=== PATIENT | female | born 1950 | race Caucasian/White ===

== ENCOUNTER → 2017-02-26 | Emergency (ER) | payer MEDICARE, MEDICAID ==
[~2017-02-26] VITALS: Ht 152.4 cm; Wt 114.0 kg
[~2017-02-26] MED LIST: PERM60CR19 TP; TOBR5DRO2 EACHEYE
[2017-02-26 14:33] VITALS: BP 134/70
== END | disposition home or self-care (01) ==
LOC: ER 13:21
DX: H01.005 Unspecified blepharitis left lower eyelid (principal); H01.002 Unspecified blepharitis right lower eyelid; B86 Scabies
CPT/HCPCS: 99283

== ENCOUNTER 2019-04-23 08:49 | Day surgery (SDC) | payer MEDICARE, MEDICAID ==
[~2019-04-23] VITALS: Ht 154.9 cm; Wt 100.0 kg
[~2019-04-23 08:49] MED LIST changes: +ASPI81TA52 PO; +BACL10TA2 PO; +BECL8.7A7 INH; +BUSP5TAB3 PO; +DILT120C51 PO; +FURO20TA4 PO; +IPRA3AMP31; +IPRA4AER; +LEVO100T9 PO; +LORA10TA7 PO; +MELO-102 PO; +OMEP-50 PO; -PERM60CR19 TP; +PERM60CR4 TOP; +POTA8CAP20 PO; +PREG50CA PO; +SUCR1TAB PO
[2019-04-23 09:04] VITALS: BP 129/70
[2019-04-23] MEDS ORDERED: LIDOcaine Viscous 15ml cup ONE (09:09)
[2019-04-23] MEDS ORDERED: MIDAZolam 5mg/5ml vial ONE (09:09)
[2019-04-23] MEDS ORDERED: fentaNYL/PF 50MCG/1 ML 2ML syringe ONE (09:09)
[2019-04-23] MEDS ORDERED: ESCI20TA PO (09:45)
[2019-04-23] MEDS ORDERED: MELO15TA13 PO (09:46)
[2019-04-23] MEDS ORDERED: OMEP20TA23 PO (09:51)
[2019-04-23] MEDS ORDERED: FURO40TA4 PO (09:52)
[2019-04-23] MEDS ORDERED: CLOP75TA15 PO (09:53)
[2019-04-23] MEDS ORDERED: PREG50CA PO (09:54)
[2019-04-23] MEDS ORDERED: DILT120C52 PO (09:55)
[2019-04-23] MEDS ORDERED: LEVO25TA49 PO (09:56)
[2019-04-23] MEDS ORDERED: PIMO1TAB2 (09:56)
[2019-04-23] MEDS ORDERED: ATOR10TA PO (09:56)
[2019-04-23] MEDS ORDERED: BUSP10TA3 PO (09:57)
[2019-04-23] MEDS ORDERED: POTA10CA44 PO (09:57)
[2019-04-23 11:18] VITALS: BP 106/63
[2019-04-23 11:28] VITALS: BP 105/51
[2019-04-23 11:38] VITALS: BP 107/63
[2019-04-23 11:48] VITALS: BP 120/58
== END 2019-04-23 12:00 | disposition home or self-care (01) ==
LOC: GI LAB 08:49
PROVIDERS: ATTEND Internal Medicine Gastroenterology
DX: D50.9 Iron deficiency anemia, unspecified (principal); K63.89 Other specified diseases of intestine; K44.9 Diaphragmatic hernia without obstruction or gangrene; K31.4 Gastric diverticulum; Z98.84 Bariatric surgery status; Z87.19 Personal history of other diseases of the digestive system
CPT/HCPCS: 43239; 45378; 99153; G0500; J2250; J3010; J7040; 99152; A4620

== ENCOUNTER 2019-09-25 17:04 | Emergency (ER) | payer MEDICARE, MEDICAID ==
[~2019-09-25] VITALS: Ht 152.4 cm; Wt 109.1 kg
[~2019-09-25 17:04] MED LIST changes: -ASPI81TA52 PO; +ATOR10TA PO; -BACL10TA2 PO; -BECL8.7A7 INH; +BUSP10TA3 PO; -BUSP5TAB3 PO; +CLOP75TA15 PO; -DILT120C51 PO; +DILT120C52 PO; +ESCI20TA PO; -FURO20TA4 PO; +FURO40TA4 PO; -IPRA3AMP31; -IPRA4AER; -LEVO100T9 PO; +LEVO25TA49 PO; -LORA10TA7 PO; -MELO-102 PO; +MELO15TA13 PO; -OMEP-50 PO; +OMEP20TA23 PO; -PERM60CR4 TOP; +PIMO1TAB2; +POTA10CA44 PO; -POTA8CAP20 PO; -SUCR1TAB PO; -TOBR5DRO2 EACHEYE
--- NOTE | 2019-09-25 17:16 | NUR ---
patient to ct.
--- NOTE | 2019-09-25 17:24 | NUR ---
patient in room 4.
--- NOTE | 2019-09-25 17:34 | NUR ---
Awaiting for Tele Neuro consult.Monitor in the room.
--- NOTE | 2019-09-25 17:34 | NUR ---
Stroke RN Shakria at bedside.
--- NOTE | 2019-09-25 17:38 | NUR ---
symptoms resolving,denies numbness to left arm and leg,only c/o left facial numbness at this time.No noted slurred speech.Able to get up at the side of the bed and took 2 steps with Primary RN and Stroke RN standing by.
[2019-09-25 17:43] LABS: BASOPHILS # (AUTO) 0.1 X10'3 (0-0.2); EOSINOPHILS # (AUTO) 0.3 X10'3 (0-0.9); EOSINOPHILS % (AUTO) 6.2 % (0-6); HEMATOCRIT 40.4 % (35.0-45.0); HEMOGLOBIN 13.4 g/dl (12.0-16.0); LYMPHOCYTES # (AUTO) 1.3 X10'3 (1.1-4.8); LYMPHOCYTES % (AUTO) 25.7 % (21-51); MEAN CORPUSCULAR HEMOGLOBIN 29.6 PG (27.0-31.0); MEAN CORPUSCULAR HGB CONC 33.1 g/dL (33.0-36.5); MEAN CORPUSCULAR VOLUME 89.4 FL (78-98); MEAN PLATELET VOLUME 7.7 FL (7.4-10.4); MONOCYTES # (AUTO) 0.4 X10'3 (0-0.9); MONOCYTES % (AUTO) 7.3 % (2-12); NEUTROPHILS # (AUTO) 3.1 X10'3 (1.8-7.7); NEUTROPHILS % (AUTO) 59.8 % (42-75); PLATELET COUNT 226 X10'3 (140-440); RED BLOOD COUNT 4.52 X10'6 (4.20-5.60); RED CELL DISTRIBUTION WIDTH 15.9 % (11.5-14.5); WHITE BLOOD COUNT 5.1 X10'3 (4.5-11.0)
[2019-09-25 17:54] LABS: PARTIAL THROMBOPLASTIN TIME 26 SECONDS (22-32)
[2019-09-25 17:56] LABS: ALANINE AMINOTRANSFERASE 39 U/L (12-78); ALBUMIN 3.5 G/DL (3.4-5.0); ALBUMIN/GLOBULIN RATIO 0.8 (1.1-1.5); ALKALINE PHOSPHATASE 153 IU/L (46-116); ANION GAP 7 (8-16); ASPARTATE AMINO TRANSFERASE 32 U/L (10-37); BILIRUBIN,TOTAL 0.5 MG/DL (0.1-1.0); BLOOD UREA NITROGEN 27 MG/DL (7-18); BUN/CREATININE RATIO 31.8 (6.6-38.0); CALCIUM 8.9 MG/DL (8.5-10.1); CHLORIDE 104 MMOL/L (99-107); CREATININE 0.85 MG/DL (0.40-0.90); GLUCOSE 113 MG/DL (70-104); POTASSIUM 4.5 MMOL/L (3.5-5.1); SODIUM 139 MMOL/L (135-145); TOTAL CARBON DIOXIDE 28.5 MMOL/L (24-32); TOTAL PROTEIN 7.8 G/DL (6.4-8.2); eGFR 66 ML/MIN
[2019-09-25 17:59] LABS: TROPONIN I < 0.04 NG/ML (0.0-0.05)
[2019-09-25] MEDS ORDERED: diphenhydrAMINE 50 mg/ml inj IV ONE (18:05)
[2019-09-25] MEDS ORDERED: ketorolac tromethamine 15mg/ml inj. IV ONE ×2 (18:05→18:35)
[2019-09-25] MEDS ORDERED: normal saline 1000ML IV soln IVB ONE (18:05)
[2019-09-25] MEDS ORDERED: iohexol 350MG/ML 100ml bottle IV ONE (18:08)
--- NOTE | 2019-09-25 18:30 | NUR ---
TORADOL DROPPED BEFORE ADMINISTER, PHARMACY NOTIFIED TO REORDER.
[2019-09-25] MEDS ORDERED: LEVO100T PO (18:34)
[2019-09-25] MEDS ORDERED: DILT120C51 PO (18:34)
[2019-09-25] MEDS ORDERED: ATOR20TA66 PO (18:34)
[2019-09-25] MEDS ORDERED: BUSP5TAB3 PO (18:34)
[2019-09-25] MEDS ORDERED: OMEP40CA13 PO (18:34)
[2019-09-25] MEDS ORDERED: POTA8CAP20 PO (18:34)
[2019-09-25] MEDS ORDERED: FURO-150 PO (18:34)
[2019-09-25] MEDS ORDERED: PREG50CA64 PO (18:38)
[2019-09-25] MEDS ORDERED: FERR325T29 PO (18:39)
[2019-09-25 20:05] VITALS: BP 124/67
== END 2019-09-25 20:06 | disposition home or self-care (01) ==
LOC: ER 17:05
DX: R20.0 Anesthesia of skin (principal); R51 Headache; E78.00 Pure hypercholesterolemia, unspecified; Z88.0 Allergy status to penicillin; Z88.2 Allergy status to sulfonamides; Z88.5 Allergy status to narcotic agent; Z79.2 Long term (current) use of antibiotics; Z79.899 Other long term (current) drug therapy
CPT/HCPCS: 36415; 70450; 70496; 70498; 71045; 80053; 82948; 84484; 85025; 85610; 85730; 93005; 96374; 96375; 99285; J1200; J1885; J7030; Q9967

== ENCOUNTER 2019-10-15 16:12 | Emergency (ER) | payer MEDICARE, MEDICAID ==
[~2019-10-15] VITALS: Ht 157.5 cm; Wt 108.9 kg
[~2019-10-15 16:12] MED LIST changes: -ATOR10TA PO; +ATOR20TA66 PO; -BUSP10TA3 PO; +BUSP5TAB3 PO; +DILT120C51 PO; -DILT120C52 PO; -ESCI20TA PO; +FERR325T29 PO; +FURO-150 PO; -FURO40TA4 PO; +LEVO100T PO; -LEVO25TA49 PO; -OMEP20TA23 PO; +OMEP40CA13 PO; -PIMO1TAB2; -POTA10CA44 PO; +POTA8CAP20 PO; -PREG50CA PO; +PREG50CA64 PO
--- NOTE | 2019-10-15 17:38 | NUR ---
CT CLEARED, TAKEN OFF TRAUMA STATUS PER PROVIDER
[2019-10-15] MEDS ORDERED: acetaminophen 325mg tablet PO ONE (18:05)
--- NOTE | 2019-10-15 18:07 | NUR ---
BACK FROM CT
--- NOTE | 2019-10-15 18:08 | NUR ---
PATIENT REFUSED TYLENOL
--- NOTE | 2019-10-15 18:52 | NUR ---
Cell phone # adelia Oakes Addendum: 10/15/19 at 2002 by JEEVAN Correct cell # [phone]
[2019-10-15 20:41] VITALS: BP 127/58
== END 2019-10-15 20:43 | disposition home or self-care (01) ==
LOC: ER 16:12
DX: S00.83XA Contusion of other part of head, initial encounter (principal); M25.551 Pain in right hip; R19.00 Intra-abdominal and pelvic swelling, mass and lump, unspecified site; I48.91 Unspecified atrial fibrillation; E78.00 Pure hypercholesterolemia, unspecified; Z88.0 Allergy status to penicillin; Z88.2 Allergy status to sulfonamides; Z88.5 Allergy status to narcotic agent; Z79.2 Long term (current) use of antibiotics; Z79.899 Other long term (current) drug therapy; W19.XXXA Unspecified fall, initial encounter; Y93.89 Activity, other specified; Y92.89 Other specified places as the place of occurrence of the external cause; Y99.8 Other external cause status
CPT/HCPCS: 70450; 72192; 73502; 99285

== ENCOUNTER 2020-09-02 12:41 | Emergency (ER) | payer MEDICARE, MEDICAID ==
[~2020-09-02] VITALS: Ht 157.5 cm; Wt 106.8 kg
[~2020-09-02 12:41] MED LIST changes: -OMEP40CA13 PO; +OMEP40CA21 PO
[2020-09-02 13:54] LABS: BASOPHILS # (AUTO) 0.1 X10'3 (0-0.2); BASOPHILS % (AUTO) 1.1 % (0-1); EOSINOPHILS # (AUTO) 0.3 X10'3 (0-0.9); EOSINOPHILS % (AUTO) 5.9 % (0-6); HEMATOCRIT 37.1 % (35.0-45.0); HEMOGLOBIN 12.2 g/dl (12.0-16.0); LYMPHOCYTES # (AUTO) 1.3 X10'3 (1.1-4.8); LYMPHOCYTES % (AUTO) 27.8 % (21-51); MEAN CORPUSCULAR HEMOGLOBIN 29.3 PG (27.0-31.0); MEAN CORPUSCULAR HGB CONC 32.8 g/dL (33.0-36.5); MEAN CORPUSCULAR VOLUME 89.5 FL (78-98); MEAN PLATELET VOLUME 8.2 FL (7.4-10.4); MONOCYTES # (AUTO) 0.4 X10'3 (0-0.9); MONOCYTES % (AUTO) 7.9 % (2-12); NEUTROPHILS # (AUTO) 2.8 X10'3 (1.8-7.7); NEUTROPHILS % (AUTO) 57.3 % (42-75); PLATELET COUNT 210 X10'3 (140-440); RED BLOOD COUNT 4.15 X10'6 (4.20-5.60); RED CELL DISTRIBUTION WIDTH 15.4 % (11.5-14.5); WHITE BLOOD COUNT 4.8 X10'3 (4.5-11.0)
[2020-09-02 14:03] LABS: ALANINE AMINOTRANSFERASE 37 U/L (12-78); ALBUMIN 3.1 G/DL (3.4-5.0); ALBUMIN/GLOBULIN RATIO 0.8 (1.1-1.5); ALKALINE PHOSPHATASE 193 IU/L (46-116); ANION GAP 7 (8-16); ASPARTATE AMINO TRANSFERASE 38 U/L (10-37); BILIRUBIN,TOTAL 0.3 MG/DL (0.1-1.0); BLOOD UREA NITROGEN 26 MG/DL (7-18); CALCIUM 8.5 MG/DL (8.5-10.1); CHLORIDE 105 MMOL/L (99-107); CREATININE 0.84 MG/DL (0.40-0.90); GLUCOSE 83 MG/DL (70-104); POTASSIUM 4.4 MMOL/L (3.5-5.1); SODIUM 140 MMOL/L (135-145); TOTAL CARBON DIOXIDE 28.1 MMOL/L (24-32); TOTAL PROTEIN 6.9 G/DL (6.4-8.2); eGFR 67 ML/MIN
[2020-09-02 14:56] VITALS: BP 172/85
[2020-09-02] MEDS ORDERED: iohexol 350MG/ML 100ml bottle IV ONE ×2 (14:56→15:08)
== END 2020-09-02 16:04 | disposition home or self-care (01) ==
LOC: ER 12:42
DX: R00.2 Palpitations (principal); R06.02 Shortness of breath; F43.0 Acute stress reaction; I48.91 Unspecified atrial fibrillation; E78.00 Pure hypercholesterolemia, unspecified; Z86.2 Personal history of diseases of the blood and blood-forming organs and certain disorders involving the immune mechanism; Z88.0 Allergy status to penicillin; Z88.2 Allergy status to sulfonamides; Z88.1 Allergy status to other antibiotic agents; Z88.8 Allergy status to other drugs, medicaments and biological substances; Z79.899 Other long term (current) drug therapy; Z98.890 Other specified postprocedural states
CPT/HCPCS: 36415; 71045; 71275; 80053; 83880; 84484; 85025; 93005; 99285; Q9967

== ENCOUNTER 2025-01-11 14:24 | Observation (INO) | payer MEDICARE, MEDICAID ==
[2025-01-01 12:32] LABS: MEAN PLATELET VOLUME 8.4 FL (7.4-10.4); PRE OP HEMATOCRIT 37.7 % (35.0-45.0); PRE OP HEMOGLOBIN 12.7 g/dL (12.0-16.0); PRE OP PLATELET COUNT 216 X10'3 (140-440); RED CELL DISTRIBUTION WIDTH 15.5 % (11.5-14.5)
[2025-01-01 12:34] LABS: LEUKOCYTE ESTERASE ,URINE MODERATE (Neg); NITRITES, URINE POSITIVE (Neg); OCCULT BLOOD,URINE NEGATIVE (Neg)
[2025-01-01 12:35] LABS: PRE OP WHITE BLOOD COUNT 3.0 10'3 (4.8-10.8)
[2025-01-01 12:42] LABS: UA COLLECTION TYPE NON-SPECIFIED
[2025-01-01 12:43] LABS: SQUAMOUS EPITHELIAL CELL,UR MODERATE /LPF (FEW)
[2025-01-01 12:44] LABS: MUCUS STRANDS FEW /LPF (Neg); RENAL CELLS, URINE FEW /HPF
[2025-01-01 12:48] LABS: PRE OP INR 1.1 INR; PRE OP PARTIAL THROMB. TIME 29.0 SECONDS (22-32); PRE OP PROTIME 10.8 SECONDS (9.0-12.0)
[2025-01-01 12:51] LABS: CREATININE 0.65 MG/DL (0.40-0.90); PRE OP ALT 26 U/L (30-65); PRE OP ANION GAP 6 (8-16); PRE OP AST 27 U/L (10-37); PRE OP BILIRUB, TOTAL 0.4 MG/DL (0.0-1.0); PRE OP GLUCOSE 74 MG/DL (70-104); PRE OP POTASSIUM 3.5 MMOL/L (3.4-5.1); PRE OP SODIUM 142 MMOL/L (135-145); TOTAL CARBON DIOXIDE 31.1 MMOL/L (24-32); eGFR 89 ML/MIN
[2025-01-01 13:13] LABS: EOSINOPHILS % (MANUAL) 4.0 % (0-6); LYMPHOCYTES % (MANUAL) 27.0 % (21-51); MONOCYTES % (MANUAL) 7.0 % (2-12); NEUTROPHILS % (MANUAL) 62.0 % (42-75); PLATELET ESTIMATE NORMAL
--- NOTE | 2025-01-01 13:46 | RADIOLOGY REPORT ---
DI CHEST,TWO VIEWS CLINICAL HISTORY: PREOP, pain COMPARISON: CTA CHEST on DOS: 09/02/20, CHEST,SINGLE VIEW on DOS: 09/02/20 TECHNIQUE: Frontal and lateral view of the chest was obtained FINDINGS: Lines and Tubes: None Lungs: No focal consolidation. Pleura: No effusion. No pneumothorax. Cardiomediastinal contours: Unremarkable Bones: No acute osseous abnormality. IMPRESSION: No acute cardiopulmonary disease.
[2025-01-11] VITALS (15 sets, daily range): BP systolic 112–148; BP diastolic 48–78; PULSE 59–73; RESP 11–26; TEMP 96.9–97.7; O2SAT 94–100
[~2025-01-11] VITALS: Ht 152.4 cm; Wt 102.1 kg
[~2025-01-11 14:24] MED LIST changes: +APIX5TAB3 PO; -ATOR20TA66 PO; +BUPIVAcaine 2.5mg/ml inj 50ml vial (contains preservative) ONE; -CLOP75TA15 PO; -DILT120C51 PO; +DONE10TA44 PO; -FURO-150 PO; +HYDR-3964 PO; -LEVO100T PO; +LORA10TA7 PO; -MELO15TA13 PO; +MULT-1249 PO; +OMEP20CA15 PO; -OMEP40CA21 PO; +OXYB15TA19 PO; -POTA8CAP20 PO; +PREG150C47 PO; -PREG50CA64 PO; +VITA1CAP PO
[2025-01-11] MEDS: ceFOXitin 2GM-NS 100mL ADDvant 100 ML IV ONE (15:55)
--- NOTE | 2025-01-11 16:07 | RADIOLOGY REPORT ---
COMPUTERIZED TOMOGRAPHY ABDOMEN/PELVIS WITHOUT INTRAVENOUS CONTRAST CLINICAL HISTORY: PRE OP UMBILICAL HERNIA COMPARISON: None TECHNIQUE: Axial CT images of the abdomen and pelvis were obtained. 2-D coronal and sagittal reformatted images were provided. Radiation optimization: All CT scans at this facility use at least one of these dose optimization techniques: Automated exposure control mA and/or kV adjustment per patient size (includes targeted exams where dose is matched to clinical indication) or iterative reconstruction. RADIATION DOSE: CTDI: 35 mGy DLP: 1761 mGy-cm FINDINGS: The visualized lung bases are grossly clear. There is no pleural effusion. There is no pericardial effusion. The spleen is not enlarged. There is gastric bypass anatomy. Streak artifact from numerous metallic clips in the upper abdomen degrades evaluation. The liver is within normal limits for size and contour. The gallbladder is not seen and may be collapsed or absent. Unenhanced appearance of the pancreas is grossly unremarkable. Evaluation of the abdominal organs is suboptimal in the absence of intravenous contrast. The adrenal glands appear within normal limits. The kidneys are similar in size. There is no hydronephrosis of either kidney. There is no abdominal aortic aneurysm. The urinary bladder is grossly unremarkable. The uterus is absent. The ovaries are not definitely seen. No free fluid is i dentified in the abdomen or pelvis. No pathologic lymphadenopathy is identified by size criteria. The colonic stool burden is small to moderate. The appendix is normal. There is no pathologic distention of the small bowel. There is a fat containing umbilical hernia with a 1.9 cm fascial defect. No acute osseous abnormality is identified. IMPRESSION: Fat containing umbilical hernia with a 1.9 cm fascial defect. Gastric bypass anatomy.
[2025-01-11] MEDS ORDERED: labetalol 20mg/4ml (5mg/ml) syringe IV PRN (18:20)
[2025-01-11] MEDS ORDERED: fentaNYL/PF 50MCG/1 ML 2ML syringe IV PRN (18:20)
[2025-01-11] MEDS ORDERED: morphine 4 MG/ML inj SYRINge IV PRN (18:20)
[2025-01-11] MEDS ORDERED: hydrALAZINE 20mg/ml inj. IV PRN (18:20)
[2025-01-11] MEDS ORDERED: midazolam 1 mg/ML 2ml injection ONE (18:50)
[2025-01-11] MEDS ORDERED: rocuronium 10mg/ml inj IV ONE (18:50)
[2025-01-11] MEDS ORDERED: ondansetron/PF 4mg/2ml inj ONE (18:50)
[2025-01-11] MEDS ORDERED: propofol inj 20 ML IV ONE (18:50)
[2025-01-11] MEDS ORDERED: fentaNYL/PF 50MCG/1 ML 2ML syringe ONE (18:50)
[2025-01-11] MEDS ORDERED: dexamethasone sod phosphate 4mg/ml inj. ONE (19:13)
[2025-01-11] MEDS ORDERED: acetaminophen 1,000mg/100ml IV 100 ML IV ONE (19:13)
[2025-01-11] MEDS: BUPIVAcaine/PF 2.5 mg/ml (0.25%) 30ml vial IJ ONE (19:19)
[2025-01-11] MEDS ORDERED: vancomycin 1,000mg inj ONE (19:48)
[2025-01-11] MEDS: vancomycin 1,000mg inj IVT ONE (20:20)
[2025-01-11] MEDS ORDERED: ondansetron/PF 4mg/2ml inj IV PRN (20:40)
[2025-01-11] MEDS ORDERED: PCA WASTE DOCUMENTATION 1 MG ML MC SCH (20:40)
--- NOTE | 2025-01-11 20:41 | OPERATIVE REPORT ---
Operative Report Providers to CC ~ Date of Procedure: Jan 11, 2025 Pre-Operative Diagnosis: symptomatic umbilical hernia Post-Operative Diagnosis SAME as PRE-Op Procedure Performed robo jimmy/robo repair incarcerated umbilical hernia with mesh-4 cm defect Surgeon: jacqui alvarez Anesthesiologist: Cachorro Funes Type of Anesthesia: General Findings: extensive adhesions/4 cm defect Estimated Blood Loss: 100 ml Specimen Removed: none FABIAN AL MD Jan 11, 2025 20:41
[2025-01-11] MEDS: fentaNYL/PF 50MCG/1 ML 2ML syringe IV PRN (20:52)
--- NOTE | 2025-01-11 21:01 | OPERATIVE REPORT ---
DATE OF SURGERY: 01/11/2025 DICTATING PHYSICIAN: Riley Horn MD DATE OF OPERATION: 01/11/2025 PREOPERATIVE DIAGNOSIS: Symptomatic incarcerated umbilical hernia. POSTOPERATIVE DIAGNOSIS: Symptomatic incarcerated umbilical hernia. PROCEDURES PERFORMED: Open repair of incarcerated umbilical hernia with 4 cm fascial defect. Laparoscopic lysis of adhesions. SURGEON: Riley Horn MD ORIENTAL RUG REPAIRER: None. ANESTHESIA: General/Dr. . DRAINS: None. INDICATIONS FOR OPERATION: This is a 74-year-old female with a symptomatic incarcerated umbilical hernia. Seen for surgical repair. INTRAOPERATIVE FINDINGS: Incarcerated umbilical hernia, extensive adhesions. DESCRIPTION OF PROCEDURE: The patient was placed supine on the operating table after the induction of general anesthesia and placement of endotracheal tube. The abdomen was prepped and draped. A subxiphoid incision was then made. Tung port placed using open technique and pneumoperitoneum was begun by insufflation of CO2. The patient had extensive adhesions. A 5 mm port was placed in the left upper quadrant. was brought to the field and used to free adhesions so the ports could be put in the lateral abdominal wall. 8 mm ports were then placed under laparoscopic vision. Robot was then brought to the field. Camera port docked. Camera placed, camera targeted. Additional ports were then docked and instruments placed. Adhesions were then taken down. Omentum was found to be in the defect. It was easily removed without difficulty. Fascial defect measured approximately 4 cm. Sutures of 0 V-Loc were then used to close the fascial defect in multiple layers. A 12 cm piece of mesh was brought to the field and secured in place using 2-0 V-Loc circumferentially. Abdomen was irrigated with large amount of antibiotic-containing solution. Once hemostasis was adequate, ports were removed under laparoscopic vision with no evidence of active bleeding. Final port and camera were withdrawn, pneumoperitoneum was evacuated. Wounds were closed in layers. The skin was closed with subcuticular stitch. Dressing was applied. The patient was transferred to recovery in stable condition. Riley Horn MD TID: [id number] RECEIPT: [id number] /[facility]
[2025-01-11] MEDS: HYDROmorphone inj. 0.5 MG/0.5 ML DISP.SYRIN IV PRN (22:28)
[2025-01-11] MEDS: potassium CL 20mEq in D5-1/2NS 1,000 ML IV SCH (22:35)
[2025-01-11] MEDS: ringers solution, lacted 1,000 ML IV SCH ×2 (22:35)
[2025-01-12] VITALS (8 sets, daily range): BP systolic 106–125; BP diastolic 42–60; PULSE 61–73; RESP 14–18; TEMP 97–98.3; O2SAT 95–99
[2025-01-12] MEDS: ciprofloxacin lact 400MG/200ML 200 ML IV SCH (09:42)
[2025-01-12] MEDS: HYDROcodone/acetaminophen 5mg/325mg tablet PO PRN (09:43)
[2025-01-12] MEDS: ondansetron/PF 4mg/2ml inj IV PRN (09:45)
--- NOTE | 2025-01-12 18:12 | PROGRESS NOTE ---
Progress Note ID Providers to CC ~ Progress Note Progress Note: pain improving/vss//abd-min distention a/p 1. s/p repair umbilical hernia-slow progress/add mom-pt FABIAN AL MD Jan 12, 2025 18:12
[2025-01-12] MEDS: donepezil 5mg tablet PO SCH (20:29)
[2025-01-12] MEDS: magnesium hydroxide 30ml (MOM) UD suspension PO SCH (20:29)
[2025-01-13 04:29] LABS: MEAN PLATELET VOLUME 8.6 FL (7.4-10.4); RED CELL DISTRIBUTION WIDTH 15.3 % (11.5-14.5)
[2025-01-13 04:44] LABS: CREATININE 0.77 MG/DL (0.40-0.90); TOTAL CARBON DIOXIDE 29.4 MMOL/L (24-32); eCRCL 45 ML/MIN; eGFR 73 ML/MIN
[2025-01-13 06:00] VITALS: BP 117/42; PULSE 68; RESP 18; TEMP 98.1; O2SAT 97
[2025-01-13] MEDS: ciprofloxacin 250mg tablet PO SCH (08:50)
[2025-01-13 09:57] VITALS: RESP 18; O2SAT 95
[2025-01-13 10:00] VITALS: BP 125/49; PULSE 65; RESP 20; TEMP 97.7; O2SAT 98
--- NOTE | 2025-01-13 12:57 | PROGRESS NOTE ---
Progress Note ID Providers to CC ~ Progress Note Progress Note: doing well/dc FABIAN AL MD Jan 13, 2025 12:57
[2025-01-13 13:40] VITALS: RESP 18
== END 2025-01-13 14:10 | disposition home or self-care (01) ==
LOC: PAS 14:24 → SUR 3N 20:51
PROVIDERS: ADMIT Surgery; ATTEND Surgery
DX: K42.9 Umbilical hernia without obstruction or gangrene (principal); K66.0 Peritoneal adhesions (postprocedural) (postinfection); F41.9 Anxiety disorder, unspecified; F32.9 Major depressive disorder, single episode, unspecified; K21.9 Gastro-esophageal reflux disease without esophagitis; F03.90 Unspecified dementia, unspecified severity, without behavioral disturbance, psychotic disturbance, mood disturbance, and anxiety; M19.90 Unspecified osteoarthritis, unspecified site; J45.909 Unspecified asthma, uncomplicated; R79.1 Abnormal coagulation profile; Z90.710 Acquired absence of both cervix and uterus; Z98.890 Other specified postprocedural states; Z79.899 Other long term (current) drug therapy
CPT/HCPCS: 49594; 71046; 80053; 81001; 82948; 85007; 85610; 85730; 86885; 86900; 86901; 96365; 96366; 96375; A4215; A4615; A4618; C1781; G0378; J1171; J3480; J3490; J7120; 36415; 74176; 85025; 87081; 87088; 96376; J0131; J0694; J0744; J1100; J2250; J2405; J2704; J3010; J3373; J7030

== ENCOUNTER 2025-01-25 09:19 | Outpatient (CLI) | payer MEDICARE, MEDICAID ==
[~2025-01-25 09:19] MED LIST changes: -BUPIVAcaine 2.5mg/ml inj 50ml vial (contains preservative) ONE
--- NOTE | 2025-01-25 12:09 | RADIOLOGY REPORT ---
EXAM: CT CT CHEST LOW DOSE HISTORY: 74-year-old female with lung cancer screening. COMPARISON: CT scan of the chest dated 09/02/2020. TECHNIQUE: Noncontrast helical CT images of the chest were performed utilizing low dose lung cancer screening protocol. Sagittal and coronal reformatted images were obtained. This CT exam was performed using one or more of the following dose reduction techniques: Automated exposure control, adjustment of the mA and/or kV according to patient size, or use of iterative reconstruction technique. Radiation Dose: CT Dose: CTDI volume is 3.74 mGy. Dose-length product is 129.53 mGy*cm FINDINGS: There is a stable 4 mm right lower lobe noncalcified pulmonary nodule (image 75, series 4). No consolidative infiltrates, pneumothorax, pleural effusions, or pulmonary edema. No suspicious mediastinal or axillary adenopathy. The heart is borderline enlarged. There are coronary artery calcifications. No thoracic aortic aneurysm. The central pulmonary arteries are ectatic. There are postoperative changes of gastric bypass. There is mild thoracic degenerative disc disease. IMPRESSION: 1. 4 mm right lower lobe noncalcified pulmonary nodule is stable since 09/02/2020 CT scan. 2. Coronary artery disease and borderline cardiomegaly. 3. Pulmonary arterial hypertension. Lung-RADS 2. Benign. Continue annual screening with LDCT in 12 months. Lung-RADS v2022.
== END 2025-01-25 23:59 | disposition home or self-care (01) ==
LOC: RAD 09:19
PROVIDERS: ATTEND Student in an Organized Health Care Education/Training Program
DX: Z12.2 Encounter for screening for malignant neoplasm of respiratory organs (principal); I27.20 Pulmonary hypertension, unspecified; R91.1 Solitary pulmonary nodule; I25.10 Atherosclerotic heart disease of native coronary artery without angina pectoris; Z87.891 Personal history of nicotine dependence
CPT/HCPCS: 71271